=== PATIENT | female | born 1955 | race Caucasian/White ===

== ENCOUNTER → 2021-07-09 | Outpatient (CLI) | payer MEDICARE ==
--- NOTE | 2021-07-09 08:22 | RAD ---
Study: XR RIGHT HIP (WITH OR WITHOUT PELVIS) 2 VIEWS Indication: Severe acute right hip pain. Comparison: None. Findings: No discrete fracture of the right hip or elsewhere throughout the pelvis. Minimal arthrosis at the hi ps with maintained joint space height. No radiographic evidence for avascular necrosis. Thin minerali zation along the lateral cortex of the subtrochanteric right femur also faintly present on the left a nd favored remodeling at an enthesis. Unremarkable pubic symphysis and minimal sacroiliac joint arthr osis. Disc space height loss at L5-S1 not fully characterized. Impression: No acute radiographic abnormality of the right hip. If there is ongoing unexplained pain consider MRI . Electronically signed by: RICK PATEL MD (07/09/2021 8:19 AM) [id number]
== END ==
LOC: RAD 07:41
PROVIDERS: ATTEND Family Medicine
DX: M16.11 Unilateral primary osteoarthritis, right hip (principal)
CPT/HCPCS: 73502